=== PATIENT | male | born 1985 | race American Indian/Alaskan Native ===

== ENCOUNTER 2019-03-27 02:16 | Emergency (ER) | payer OTHER ==
[2019-03-27 02:27] VITALS: BP 115/66; PULSE 57; RESP 20; TEMP 98; O2SAT 96
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
== END 2019-03-27 03:01 | disposition home or self-care (01) ==
LOC: C.ER 02:16
DX: M54.2 Cervicalgia (principal); S16.1XXA Strain of muscle, fascia and tendon at neck level, initial encounter; V49.59XA Passenger injured in collision with other motor vehicles in traffic accident, initial encounter; Y92.410 Unspecified street and highway as the place of occurrence of the external cause